=== PATIENT | female | born 2000 | race Caucasian/White ===

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

== ENCOUNTER 2024-12-28 18:39 | Inpatient (IN) ==
[2024-12-28 19:55] LABS: Appearance Urine Cloudy (Clear); Bacteria Urine Automated None Seen (None Seen); Bilirubin Urine Negative (Negative); Blood Urine 1+ (Negative); Cast Urine Automated 0-2 /lpf (0-2); Color Urine Yellow; Epithelial Cell Urine Auto 0-2 /hpf (0-2); Glucose Urine UA Negative (Negative); Ketones Urine 2+ (Negative); Leukocyte Esterase Urine 3+ (Negative); Nitrite Urine Negative (Negative); Protein Urine Trace (Negative); RBC Urine Automated 0-2 /hpf (0-2); Urobilinogen Urine Negative (Negative); WBC Urine Automated >50 /hpf (0-5); pH Urine 5.5 (4.5-7.5)
[2024-12-28 20:23] LABS: Basophils # (auto) 0.04 K/uL (0.00-0.20); Basophils % (auto) 0.5 %; Eosinophils # (auto) 0.01 K/uL (0.00-0.50); Eosinophils % (auto) 0.1 %; Hematocrit (blood only) 42.6 % (37.0-47.0); Hemoglobin 14.3 g/dl (12.0-16.0); Immature Granulocytes # (auto) 0.02 K/uL (0.01-0.20); Immature Granulocytes % (auto) 0.3 %; Lymphocytes # (auto) 2.26 K/uL (1.20-3.40); Lymphocytes % (auto) 29.2 %; Mean Corpuscular Hemoglobin 29.2 pg (25.0-34.0); Mean Corpuscular Hgb Conc 33.6 g/dL (32.0-36.0); Mean Corpuscular Volume 87.1 fL (80.0-100.0); Mean Platelet Volume 10.6 fL (9.4-12.4); Monocytes # (auto) 0.44 K/uL (0.11-0.59); Monocytes % (auto) 5.7 %; Neutrophils # (auto) 4.98 K/uL (1.40-6.50); Neutrophils % (auto) 64.2 %; Platelet Count 366 K/uL (130-400); RDW Coefficient of Variation 11.3 % (11.5-14.5); RDW Standard Deviation 36.3 fL (36.4-46.3); Red Blood Count 4.89 M/uL (4.20-5.40); White Blood Count 7.75 K/ul (4.8-10.8)
[2024-12-28 20:32] LABS: Acetaminophen < 3 ug/ml (10-30); Amphetamines+Metham, Urine Pos (Neg); Barbiturates, Urine Neg (Neg); Benzodiazepine, Urine Neg (Neg); Cocaine, Urine Neg (Neg); Fentanyl, Urine Neg (Neg); MDMA (Ecstacy), Urine Pos (Neg); Marijuana, Urine Pos (Neg); Methadone, Urine Neg (Neg); Opiate, Urine Neg (Neg); Phencyclidine, Urine Neg (Neg); Salicylate < 3.0 mg/dl (3.0-30)
[2024-12-28 20:33] LABS: Albumin Level 4.6 gm/dl (3.4-5.0); Anion Gap 10 (3-11); Bilirubin,Total 0.4 mg/dl (0.2-1.0); Calcium 9.7 mg/dl (8.6-10.3); Carbon Dioxide 29 mmol/L (21-32); Chloride 98 mmol/L (98-107); Potassium 3.3 mmol/L (3.5-5.1); Sodium 137 mmol/L (136-145)
[2024-12-28 20:39] LABS: Alanine Aminotransferase 28 U/L (7-52); Albumin Globulin Ratio 1.2 (0.9-2); Alkaline Phosphatase 102 U/L (34-104); Aspartate Aminotransferase 52 U/L (13-39); BUN Creatinine Ratio 9.9 (10-20); Blood Urea Nitrogen 8 mg/dl (6-23); Globulin 3.7 gm/dl (2.5-4.0); Glucose 85 mg/dl (70-99(Fasting)); Total Protein 8.3 gm/dl (6.0-8.3)
[2024-12-28 20:51] LABS: Thyroid Stimulating Hormone 0.817 uIu/ml (0.300-4.500)
[2024-12-28 21:14] LABS: Pregnancy Test, Urine Negative (Negative)
[2024-12-28] MEDS: NITROFURANTOIN MONOHYDRATE 100 MG CAP PO STA (22:02)
--- NOTE | 2024-12-28 23:39 | CT Scan Report ---
Exam(s): CT HEAD Without Contrast EXAM: CT Head Without Intravenous Contrast CLINICAL HISTORY: Reason for exam: ams. TECHNIQUE: Axial computed tomography images of the head/brain without intravenous contrast. CTDI is 39.03 mGy and DLP is 547.75 mGy-cm. Automated exposure control was utilized for the study. A dose lowering technique was utilized adhering to the principles of ALARA. COMPARISON: 09/11/2022 FINDINGS: Brain: No hemorrhage, extra-axial fluid collection, mass effect, or edema. Ventricles: Unremarkable. Bones/joints: Unremarkable. No fracture. Soft tissues: Unremarkable. Sinuses: No acute sinusitis. Mastoid air cells: Unremarkable as visualized. IMPRESSION: 1. No acute intracranial abnormality. Electronically signed by: Jc Concepcion MD 12/28/24 23:38 PM
--- NOTE | 2024-12-29 00:19 | Emergency Department Note ---
History of Present Illness General Chief complaint: Mental Health Evaluation Stated complaint: MHID Time Seen by Provider: 12/28/24 20:47 History of Present Illness Provider complaint: Mental health evaluation 25-year-old female presents the emergency department for mental health evaluation. Reportedly the police were called multiple times by the patient. Patient is unable to give history and is talking to people who are not in the room. She did make comments that the people who are in the room were telling her to stab herself on the heart with a knife. Home Medications Medication Instructions Recorded Confirmed Type levonorgestrel 17.5 mcg/24 hr (up 1 device intrauterine CONTINOUS 07/31/21 12/28/24 History to 5 yrs) 19.5mg intrauterine device (Kyleena) risperidone 4 mg tablet 4 mg PO HS 09/11/22 12/28/24 History trazodone 100 mg tablet 100 mg PO HS 09/11/22 12/28/24 History atomoxetine 10 mg capsule 10 mg PO DAILY ADD or ADHD 12/28/24 12/28/24 History atomoxetine 40 mg capsule 40 mg PO QAM ADD 12/28/24 12/28/24 History paliperidone 3 mg tablet,extended 3 mg PO QAM 12/28/24 12/28/24 History release 24 hr sertraline 25 mg tablet 25 mg PO DAILY MDD 12/28/24 12/28/24 History trazodone 50 mg tablet 50 mg PO HS 12/28/24 12/28/24 History Allergies Allergy/AdvReac Type Severity Reaction Status Date / Time No Known Allergies Allergy Mild Verified 03/19/22 18:26 Past Med/Surg History Problem List (Updated 12/29/24 @ 00:19 by Tahir Merlos MD) Auditory hallucinations (Acute) Drug abuse (Acute) UTI (urinary tract infection) (Acute) Presence of IUD kyleena, 06/2021 Schizoaffective disorder (Acute) History of drug abuse Depression (Chronic) ADD (attention deficit disorder) without hyperactivity (Acute) Gastroesophageal reflux disease (Acute) Medical History Encounter for IUD insertion Missed Seizure disorder As child (febrile seizures), out grew age 7 Surgical History H/O dilation and curettage D&E on 05/11/21, Dr. Lira. Family History Mother Learning disability Unknown History of cardiac disorder Hyperlipidemia Hypertension Grandmother Type 2 diabetes mellitus Grandfather Type 2 diabetes mellitus Grandmother (Maternal) Colorectal cancer Other Diverticulitis Heartburn Denies family history of Ovarian cancer Breast cancer Social History Smoking Status: Current some day smoker Tobacco Type: Cigarettes Cigarettes Per Day: ocasional thru out the day; Second Hand Exposure: No; Do You Dip or Chew Tobacco: No; Hx Alcohol Use: No Hx Substance Use: Yes Non-Prescribed Medications: Marijuana Preferred Language: Yakut Communication Ability: Effective Visual Impairment: No Limitations Hearing Ability: Normal Stapling Machine Operator Required: No Beliefs That Will Affect Care: None marital status: Single marital status details: paternity uncertain Current Living Situation: Family Current Living Situation Comment: lives with roommate current occupational status: unemployed Feels Safe at Home: No Is there a partner from a previous relationship who is making you feel unsafe now?: No caffeine: Yes Dental Care, Regularly: Yes Physical Activity Frequency: 5-6 Times per Week Seatbelt Use: always Sunscreen Use: No Physical Exam Vital Signs Vital Signs - 24 hr 12/28/24 18:39 12/28/24 22:42 Temperature 37 C Temperature Source Oral Pulse Rate 132 H Pulse Rate [Finger] 83 Respiratory Rate 20 17 Respiratory Effort / Characteristics Non-Labored Non-Labored Spontaneous Respiratory Depth Normal Normal Respiratory Pattern Regular Regular Blood Pressure 119/86 Blood Pressure [Left Arm] 115/75 Blood Pressure Mean 97 Blood Pressure Mean [Left Arm] 88 Pulse Oximetry 99 98 Oxygen Delivery Method Room Air Room Air Sepsis Recent Fever Within 48 Hours No Sepsis New/Unexplained Change in Mental Status N/A Sepsis Action Taken by Nursing No Action Required Physical Exam HENT: Exam performed. - Head: Normocephalic and atraumatic. EYES: Conjunctivae and EOM are normal. Right eye exhibits no discharge. Left eye exhibits no discharge. No scleral icterus. NECK: Normal range of motion. Neck supple. No JVD present. CV: Normal rate, regular rhythm, normal heart sounds and intact distal pulses. There is no peripheral edema. Palpable radial pulses bue. PULM/CHEST: Effort normal and breath sounds normal. No respiratory distress. No stridor. no wheezes. no rales. NEURO: Motor and sensation grossly intact. PSYCH: Patient speaking to people who are not there responding to external stimuli that are now present. Course Course 2046: The patient was evaluated in room A7. A complete history and physical exam was performed 2339: Vital signs stable. Imaging is unremarkable. Labs show possible UTI. COVID-positive. Patient was declined by the [facility] according to case management due to her having COVID. Patient is thought to need inpatient treatment for her auditory hallucinations and suicidal ideation. Patient will be admitted to the medicine service to be evaluated by psychiatry in the morning. Administered Medications Discontinued Medications Nitrofurantoin Macrocrystals (Nitrofurantoin Monohydrate 100 Mg Cap) 100 mg PO NOW STA Stop: 12/28/24 21:42 Last Admin: 12/28/24 22:02 Dose: 100 mg Documented By: ROBERTA Medical Decision Making Laboratory Data Attestation: I reviewed the patient's lab results. 12/28/24 19:22 12/28/24 19:22 Lab Results 12/28/24 12/28/24 Range/Units 19:22 Unknown WBC 7.75 (4.8-10.8) K/ul RBC 4.89 (4.20-5.40) M/uL Hgb 14.3 (12.0-16.0) g/dl Hct 42.6 (37.0-47.0) % MCV 87.1 (80.0-100.0) fL MCH 29.2 (25.0-34.0) pg MCHC 33.6 (32.0-36.0) g/dL RDW Std Deviation 36.3 L (36.4-46.3) fL RDW Coeff of Dominic 11.3 L (11.5-14.5) % Plt Count 366 (130-400) K/uL MPV 10.6 (9.4-12.4) fL Immature Gran % (Auto) 0.3 % Neut % (Auto) 64.2 % Lymph % (Auto) 29.2 % Webb % (Auto) 5.7 % Eos % (Auto) 0.1 % Baso % (Auto) 0.5 % Neut # (Auto) 4.98 (1.40-6.50) K/uL Lymph # (Auto) 2.26 (1.20-3.40) K/uL Webb # (Auto) 0.44 (0.11-0.59) K/uL Eos # (Auto) 0.01 (0.00-0.50) K/uL Baso # (Auto) 0.04 (0.00-0.20) K/uL Immature Gran # (Auto) 0.02 (0.01-0.20) K/uL Sodium 137 (136-145) mmol/L Potassium 3.3 L (3.5-5.1) mmol/L Chloride 98 (98-107) mmol/L Carbon Dioxide 29 (21-32) mmol/L Anion Gap 10 (3-11) BUN 8 (6-23) mg/dl Creatinine 0.81 (0.6-1.2) mg/dl Est Cr Clr Drug Dosing Not Reportable eGFR 105.19 BUN/Creatinine Ratio 9.9 L (10-20) Glucose 85 (70-99(Fasting)) mg/dl Calcium 9.7 (8.6-10.3) mg/dl Total Bilirubin 0.4 (0.2-1.0) mg/dl AST 52 H (13-39) U/L ALT 28 (7-52) U/L Alkaline Phosphatase 102 (34-104) U/L Total Protein 8.3 (6.0-8.3) gm/dl Albumin 4.6 (3.4-5.0) gm/dl Globulin 3.7 (2.5-4.0) gm/dl Albumin/Globulin Ratio 1.2 (0.9-2) TSH 0.817 (0.300-4.500) uIu/ml Urine Color Yellow Urine Appearance Cloudy A (Clear) Urine pH 5.5 (4.5-7.5) Ur Specific [place] 1.010 (1.000-1.030) Urine Protein Trace H (Negative) Urine Glucose (UA) Negative (Negative) Urine Ketones 2+ H (Negative) Urine Blood 1+ H (Negative) Urine Nitrite Negative (Negative) Urine Bilirubin Negative (Negative) Urine Urobilinogen Negative (Negative) Ur Leukocyte Esterase 3+ H (Negative) Urine WBC (Auto) >50 H (0-5) /hpf Urine RBC (Auto) 0-2 (0-2) /hpf U Hyaline Cast (Auto) 0-2 (0-2) /lpf U Epithel Cells (Auto) 0-2 (0-2) /hpf Urine Bacteria (Auto) None Seen (None Seen) Urine Test Negative (Negative) Salicylates < 3.0 L (3.0-30) mg/dl Urine Opiates Screen Neg (Neg) Ur Methadone, Qual Neg (Neg) Urine Fentanyl Screen Neg (Neg) Acetaminophen < 3 L (10-30) ug/ml Urine Barbiturates Neg (Neg) Ur Phencyclidine (PCP) Neg (Neg) U Amphetamin/Meth Scrn Pos H (Neg) MDMA (Ecstasy) Screen Pos H (Neg) U Benzodiazepines Scrn Neg (Neg) Ur Cocaine Metabolite Neg (Neg) U Marijuana (THC) Screen Pos H (Neg) Ethyl Alcohol mg/dL < 10.0 (<10.0) mg/dl SARS-CoV-2, RNA, NAAT POSITIVE A (NEGATIVE) Imaging Data Attestation: I personally reviewed and interpreted this imaging study as follows: My Impression: CT head: No ICH Radiologist's Impression: Head CT 12/28/24 21:46 Exam(s): CT HEAD Without Contrast EXAM: CT Head Without Intravenous Contrast CLINICAL HISTORY: Reason for exam: ams. TECHNIQUE: Axial computed tomography images of the head/brain without intravenous contrast. CTDI is 39.03 mGy and DLP is 547.75 mGy-cm. Automated exposure control was utilized for the study. A dose lowering technique was utilized adhering to the principles of ALARA. COMPARISON: 09/11/2022 FINDINGS: Brain: No hemorrhage, extra-axial fluid collection, mass effect, or edema. Ventricles: Unremarkable. Bones/joints: Unremarkable. No fracture. Soft tissues: Unremarkable. Sinuses: No acute sinusitis. Mastoid air cells: Unremarkable as visualized. IMPRESSION: 1. No acute intracranial abnormality. Electronically signed by: Jc Concepcion MD 12/28/24 23:38 PM [facility] Narrative Vital signs stable. Imaging is unremarkable. Labs show possible UTI. COVID- positive. Patient was declined by the [facility] according to case management due to her having COVID. Patient is thought to need inpatient treatment for her auditory hallucinations and suicidal ideation. Patient will be admitted to the medicine service to be evaluated by psychiatry in the morning. Impression & Plan UTI (urinary tract infection), Drug abuse, Auditory hallucinations Discharge Plan Visit Data Chief Complaint: Mental Health Evaluation Stated Complaint: MHID ED Provider: Tahir Merlos Discharge Problem: UTI (urinary tract infection), Drug abuse, Auditory hallucinations Patient Disposition: Admitted As Inpatient Forms Stand Alone Forms: My [facility], Suicide Prevention Resources Prescriptions Prescriptions: No Action Kyleena 17.5 mcg/24 hrs (5 yrs) 19.5 mg intrauterine device 1 device intrauterine CONTINOUS risperidone 4 mg tablet 4 mg PO HS trazodone 100 mg tablet 100 mg PO HS atomoxetine 10 mg capsule 10 mg PO DAILY atomoxetine 40 mg capsule 40 mg PO QAM sertraline 25 mg tablet 25 mg PO DAILY trazodone 50 mg tablet 50 mg PO HS paliperidone 3 mg tablet extended release 24 hr 3 mg PO QAM Referrals Referrals: Maritza Kilgore [Primary Care Provider] -
--- NOTE | 2024-12-29 01:04 | History & Physical Report ---
Date of Service December 29, 2024 Assessment & Plan (1) Auditory hallucinations: (2) Schizoaffective disorder: (3) Depression: (4) ADD (attention deficit disorder) without hyperactivity: (5) Lab test positive for detection of COVID-19 virus: Plan Pt is a 24 yo female with a past med hx of schizoaffective disorder, ADHD, and depression who presents to the hospital on 12/29 for auditory and visual hallucinations, has been off her medications per psych case management note for 3-4 days. #Hallucinations, auditory and visual #Hx Schizoaffective disorder - reportedly off her medications the last few days, takes risperidone and paliperidone - psych consulted; pending - 1:1 here in the hospital #Abnormal UDS - UDS + for marijuana, methamphetamine, and MDMA - pt notably does have ADHD but takes atomoxetine at home per med list and question if this may be false positive #COVID-19 + - pt appears asymptomatic from this - will monitor for symptom development but could be positive from recent resolved infection, may inquire when pt more willing to answer questions #Bacteruria - noted on admission UA + bacteria and LE, ED given 1 dose macrobid - will continue macrobid as she is unable to effectively communicate symptoms at this time #Depression - takes sertraline at home - takes trazodone at home for sleep All home medications held on admission pending psych eval. EKG scheduled for am. VTE ppx: Junior score 1 ( control) so low risk for VTE, encourage ambulation Diet: Safe tray History of Present Illness Chief Complaint: Auditory and visual hallucinations Primary Care Provider: Maritza Kilgore Pt is a 24 yo female with a past med hx of schizoaffective disorder, ADHD, and depression who presents to the hospital on 12/29 for auditory and visual hallucinations, has been off her medications per psych case management note for 3-4 days. Pt seen at bedside. She continuously responds to perceived visual and auditory stimuli. Even with repeated questioning, she continues to essentially only interact with other perceived stimuli. When asked if I could listen to her lungs, she states "why do you have to ask me all these questions right now?" and then answers no further questions. Per psych case management note, pt came from home where she lives with per parents. When asked if she has pain, she states yes but then is unable to describe or indicate to me where. Allergies Allergy/AdvReac Type Severity Reaction Status Date / Time No Known Allergies Allergy Mild Verified 03/19/22 18:26 Home Medications Medication Instructions Recorded Confirmed Type levonorgestrel 17.5 mcg/24 hr (up 1 device intrauterine CONTINOUS 07/31/21 12/28/24 History to 5 yrs) 19.5mg intrauterine device (Kyleena) risperidone 4 mg tablet 4 mg PO HS 09/11/22 12/28/24 History trazodone 100 mg tablet 100 mg PO HS 09/11/22 12/28/24 History atomoxetine 10 mg capsule 10 mg PO DAILY ADD or ADHD 12/28/24 12/28/24 History atomoxetine 40 mg capsule 40 mg PO QAM ADD 12/28/24 12/28/24 History paliperidone 3 mg tablet,extended 3 mg PO QAM 12/28/24 12/28/24 History release 24 hr sertraline 25 mg tablet 25 mg PO DAILY MDD 12/28/24 12/28/24 History trazodone 50 mg tablet 50 mg PO HS 12/28/24 12/28/24 History Past Med/Surg History Problem List (Updated 12/29/24 @ 02:15 by Mynor Johns) Family conflict Lab test positive for detection of COVID-19 virus Auditory hallucinations (Acute) Drug abuse (Acute) UTI (urinary tract infection) (Acute) Presence of IUD kyleena, 06/2021 Schizoaffective disorder (Acute) History of drug abuse Depression (Chronic) ADD (attention deficit disorder) without hyperactivity (Acute) Gastroesophageal reflux disease (Acute) Medical History Encounter for IUD insertion Missed Seizure disorder As child (febrile seizures), out grew age 7 Surgical History H/O dilation and curettage D&E on 05/11/21, Dr. Lira. Family History Mother Learning disability Unknown History of cardiac disorder Hyperlipidemia Hypertension Grandmother Type 2 diabetes mellitus Grandfather Type 2 diabetes mellitus Grandmother (Maternal) Colorectal cancer Other Diverticulitis Heartburn Denies family history of Ovarian cancer Breast cancer Social History Smoking Status: Current every day smoker Tobacco Type: E-cigarettes / Vaping Cigarettes Per Day: ocasional thru out the day; Second Hand Exposure: No; Do You Dip or Chew Tobacco: No; Hx Alcohol Use: Yes Hx Substance Use: Yes Non-Prescribed Medications: Marijuana Preferred Language: Arabic Communication Ability: Effective Visual Impairment: No Limitations Hearing Ability: Normal Poultry Dresser Required: No Beliefs That Will Affect Care: None marital status: Single marital status details: paternity uncertain Current Living Situation: Parent Current Living Situation Comment: lives with roommate current occupational status: unemployed Feels Safe at Home: Yes caffeine: Yes Dental Care, Regularly: Yes Physical Activity Frequency: 5-6 Times per Week Seatbelt Use: always Sunscreen Use: No Review of Systems Review of Systems: Per HPI. Physical Exam Physical Exam: General: Alert but continuously responding to perceived visual and auditory stimuli, unwilling to answer any orientation questions aside from self, and she is oriented to self HEENT: Normocephalic, moist oral mucosa, Resp: Lungs clear to auscultation b/l, no wheezes or rhonchi, Skin: Warm, pink, dry,no rashes on visible skin Results & Data Results & Data Vital Signs (Past 12 Hours) Vital Signs Temp Pulse Pulse Resp BP BP Pulse Ox 12/29/24 00:39 98 H 20 114/70 97 12/28/24 22:42 83 17 115/75 98 12/28/24 18:39 37 C 132 H 20 119/86 99 O2 Del Method 12/29/24 00:39 Room Air 12/28/24 22:42 Room Air 12/28/24 18:39 Room Air Supervising Physician Co-Signing Physician Notes Attending addendum: I have physically seen this patient, have supervised the medical residents activities, and agree with the H&P unless as otherwise noted. Assessment and Plan: The patient is a 24-year-old female with a past medical history including schizoaffective disorder, ADHD, and depression, who presents to the emergency department for auditory and visual hallucinations, having been off her medications for about 3 to 4 days. Auditory and visual hallucinations/history of schizoaffective disorder- Patient has been off her psychiatry medications including risperidone and paliperidone for the past few days. Consulting psychiatry Placed on one-to-one observation Hold current medications Urine drug screen- Positive for marijuana, amphetamine/methamphetamine, and MDMA. In part likely secondary to false positive results to the current medications she is on Follow on telemetry for possible arrhythmia COVID-19 infection- Asymptomatic Performed as screening for possible admission to mental health Bacteriuria- Follow urine culture and sensitivity She had been given Macrobid previously, which can be followed for now, but would be concerned about potential side effects Resident Activity Tracking Resident Involvement: Resident Care Provided Care Provided: Adult [facility] (2) Schizoaffective disorder Schizoaffective disorder type: other Qualified Code(s): F25.8 - Other schizoaffective disorders
[2024-12-29] MEDS: MELATONIN 3 MG TAB PO PRN (01:38)
[2024-12-29] MEDS: LORazepam 2 MG/1 ML VIAL IV STA (04:51)
[2024-12-29] MEDS: POTASSIUM CHLORIDE CRTAB 20 MEQ TABCR PO STA (04:57)
[2024-12-29] MEDS: LORazepam 0.5 MG TAB PO STA (04:57)
[2024-12-29 07:23] LABS: Basophils # (auto) 0.04 K/uL (0.00-0.20); Basophils % (auto) 0.7 %; Eosinophils # (auto) 0.03 K/uL (0.00-0.50); Eosinophils % (auto) 0.5 %; Hematocrit (blood only) 39.8 % (37.0-47.0); Hemoglobin 13.6 g/dl (12.0-16.0); Immature Granulocytes # (auto) 0.01 K/uL (0.01-0.20); Immature Granulocytes % (auto) 0.2 %; Lymphocytes # (auto) 1.37 K/uL (1.20-3.40); Lymphocytes % (auto) 22.4 %; Mean Corpuscular Hemoglobin 29.6 pg (25.0-34.0); Mean Corpuscular Hgb Conc 34.2 g/dL (32.0-36.0); Mean Corpuscular Volume 86.5 fL (80.0-100.0); Mean Platelet Volume 10.2 fL (9.4-12.4); Monocytes # (auto) 0.43 K/uL (0.11-0.59); Neutrophils # (auto) 4.23 K/uL (1.40-6.50); Neutrophils % (auto) 69.2 %; Platelet Count 342 K/uL (130-400); RDW Coefficient of Variation 11.3 % (11.5-14.5); RDW Standard Deviation 36.2 fL (36.4-46.3); White Blood Count 6.11 K/ul (4.8-10.8)
[2024-12-29 07:36] LABS: Alanine Aminotransferase 25 U/L (7-52); Albumin Globulin Ratio 1.3 (0.9-2); Albumin Level 4.3 gm/dl (3.4-5.0); Alkaline Phosphatase 93 U/L (34-104); Anion Gap 4 (3-11); Aspartate Aminotransferase 38 U/L (13-39); BUN Creatinine Ratio 13.4 (10-20); Bilirubin,Total 0.3 mg/dl (0.2-1.0); Blood Urea Nitrogen 9 mg/dl (6-23); Calcium 9.5 mg/dl (8.6-10.3); Carbon Dioxide 32 mmol/L (21-32); Chloride 102 mmol/L (98-107); Globulin 3.4 gm/dl (2.5-4.0); Glucose 94 mg/dl (70-99(Fasting)); Potassium 4.2 mmol/L (3.5-5.1); Sodium 138 mmol/L (136-145); Total Protein 7.7 gm/dl (6.0-8.3)
[2024-12-29] MEDS ORDERED: ONDANSETRON INJ 2 MG/ML 2 ML VIAL IV PRN (08:43)
[2024-12-29] MEDS: FAMOTIDINE 20MG IV PUSH 20 MG/5 ML SYR IV STA (09:59)
--- NOTE | 2024-12-29 13:45 | Psychiatric Consultation ---
Date of Consultation December 29, 2024 Impression / Recommendations Impression 24 y/o F h/o Schizoaffective disorder, depressed type, multiple past psychiatric hospitalizations, COVID+ presents with acute psychosis in the context of family conflict at home and possible medication non-adherence. Police were called and patient threatened to stab herself. Psychiatry consulted for evaluation and recommendations. Patient presents acutely psychotic, responding to internal stimuli and poor e ngagement in the clinical interview. History reveals h/o recurrent psychiatric hospitalizations, medication non-adherence, depression, and drug abuse. Possible recent methamphetamine and marijuana use precipitated psychosis. Active UTI. Labs reviewed: CMP, CBC, TSH, BHCG unremarkable; UA: 4+LE, >50WBC; UDS+Amphetamine, THC, MDMA. Admitted to medical floor due to covid positive status and will be followed by psychiatry service daily as PSOC. Overall, I spent a total of 80 minutes with this case including review of chart records, nursing report, review of lab work, direct evaluation of the patient at bedside, counseling the patient, discussion of the patient with the hospitalist provider, discussion with the psychiatric liaison during clinical rounds, and documentation in the electronic health record. (1) Auditory hallucinations: (2) Schizoaffective disorder: Schizoaffective disorder type: other Qualified Code(s): F25.8 - Other schizoaffective disorders (3) Methamphetamine abuse: (4) Cannabis abuse: (5) UTI (urinary tract infection): (6) Family conflict: (7) Nonadherence to medication: (8) Lab test positive for detection of COVID-19 virus: Plan Risperidone 1mg BID Trazodone 50mg HS Lorazepam 0.5mg HS Hold home sertraline, atomoxetine Continue 1:1 sitter Currently on 302 petition Will request records from outpatient psychiatry Will continue to follow patient as [facility] Psych History Identifying Data 24 y/o F h/o Schizoaffective disorder, depressed type, multiple past psychiatric hospitalizations, COVID+ presents with acute psychosis in the context of family conflict at home and possible medication non-adherence. Police were called and patient threatened to stab herself. Psychiatry consulted for evaluation and recommendations. Chief Complaint "Tired" History of Present Illness On interview patient appears paranoid and presents hesitancy to talk to us. Answers and short replies and covers herself under the sheets. She confirms having an argument with her father. Says that she feels safe. Unwilling to tell us about recent drug use. Informed about her UTI status and educated. Throughout the interview she is seen responding to internal stimuli and talking to someone not present in the room. Says that she was taking medications however did not take them yesterday. Unwilling to answer further questions and closes her eyes. Chart review: Past ER visit on 06/14/2024 where she was psychotic and responding to internal stimuli. Was hospitalized at [facility]. Outpatient psychiatric follow-up at [place]. Lives with her father. Currently taking sertraline 25 mg, trazodone 50 mg, paliperidone 3 mg, Strattera. Previously was on paliperidone 9 mg, Haldol 2 mg 3 times daily. History of medication nonadherence. Appears she had recent hospitalization at [facility]. Attempted to gather collateral from father however went to voicemail. Allergies Allergy/AdvReac Type Severity Reaction Status Date / Time No Known Allergies Allergy Mild Verified 03/19/22 18:26 Home Medications Medication Instructions Recorded Confirmed Type levonorgestrel 17.5 mcg/24 hr (up 1 device intrauterine CONTINOUS 07/31/21 12/28/24 History to 5 yrs) 19.5mg intrauterine device (Kyleena) risperidone 4 mg tablet 4 mg PO HS 09/11/22 12/28/24 History trazodone 100 mg tablet 100 mg PO HS 09/11/22 12/28/24 History atomoxetine 10 mg capsule 10 mg PO DAILY ADD or ADHD 12/28/24 12/28/24 History atomoxetine 40 mg capsule 40 mg PO QAM ADD 12/28/24 12/28/24 History paliperidone 3 mg tablet,extended 3 mg PO QAM 12/28/24 12/28/24 History release 24 hr sertraline 25 mg tablet 25 mg PO DAILY MDD 12/28/24 12/28/24 History trazodone 50 mg tablet 50 mg PO HS 12/28/24 12/28/24 History Patient History Medical History Encounter for IUD insertion Missed Seizure disorder As child (febrile seizures), out grew age 7 Surgical History H/O dilation and curettage D&E on 05/11/21, Dr. Lira. Family History Mother Learning disability Unknown History of cardiac disorder Hyperlipidemia Hypertension Grandmother Type 2 diabetes mellitus Grandfather Type 2 diabetes mellitus Grandmother (Maternal) Colorectal cancer Other Diverticulitis Heartburn Denies family history of Ovarian cancer Breast cancer Social History Smoking Status: Current every day smoker Tobacco Type: E-cigarettes / Vaping Cigarettes Per Day: ocasional thru out the day; Second Hand Exposure: No; Do You Dip or Chew Tobacco: No; Hx Alcohol Use: Yes Hx Substance Use: Yes Non-Prescribed Medications: Marijuana Preferred Language: Sami Communication Ability: Effective Visual Impairment: No Limitations Hearing Ability: Normal Binder Operator Required: No Beliefs That Will Affect Care: None marital status: Single marital status details: paternity uncertain Current Living Situation: Parent Current Living Situation Comment: lives with roommate current occupational status: unemployed Feels Safe at Home: Yes caffeine: Yes Dental Care, Regularly: Yes Physical Activity Frequency: 5-6 Times per Week Seatbelt Use: always Sunscreen Use: No Physical Exam Mental Examination: Appearance: Disheveled Eye Contact: Sporadic Contact Motor Behavior: Unremarkable Speech: Soft and Poverty of Speech Mood: Anxious and Irritable Affect: Constricted, Irritable and Suspicious Thought Process: Disorganized Thought Content: Racing Hallucinations: Auditory Insight: Poor Judgement: Poor Vital Signs (Past 24 Hours): Last Vital Signs Temp 37 C 12/28/24 18:39 Pulse 90 12/29/24 10:53 Resp 18 12/29/24 10:53 BP 120/53 L 12/29/24 10:53 Pulse Ox 95 12/29/24 10:53 O2 Del Method Room Air 12/29/24 10:53 Results & Data (PSY) Medications Administered Melatonin (Melatonin 3 Mg Tab) 6 mg PO HS PRN PRN Reason: Sleep Stop: 01/28/25 01:30 Last Admin: 12/29/24 01:38 Dose: 6 mg Documented By: OLVIN Coding [place] [address] IN/OBS CONSULT LVL 5,80M Patient Type Established History Detailed Exam Detailed Medical Decision Making High Complexity Diagnoses Auditory hallucinations R44.0 Schizoaffective disorder F25.8 Schizoaffective disorder type: other Methamphetamine abuse F15.10 Cannabis abuse F12.10 UTI (urinary tract infection) N39.0 Family conflict Z63.8 Nonadherence to medication Z91.14 Lab test positive for detection of COVID-19 virus U07.1
[2024-12-29] MEDS: NITROFURANTOIN MONOHYDRATE 100 MG CAP PO SCH (19:02)
[2024-12-29] MEDS: risperiDONE 1 MG TABLET PO SCH (19:03)
--- NOTE | 2024-12-29 19:51 | Communication Note ---
Date of Service: December 29, 2024 Care was d/w psych via [facility] communication. They have recommended ongoing 1:1 observation, resumption of risperdal 1mg BID, ativan 0.5mg HS, trazodone 50mg HS. Prior to seeing Nancie her mother had stopped by and I spoke with her briefly outside the room. Nancie's mother stated that she was in a dual dx rehab program for 45 days in late 2023 in [place]. She has had troubles with drug abuse for 5+ years. Nancie has struggled with her mental health and has been in/out of psych facilities frequently in the last few years. During my bedside visit Nancie reports not remembering the psychiatrist stopping in. She did ask for her meal-tray - she is now hungry. Had had dry heaves earlier in the day - now resolved. Denies any abd pain. We discussed her COVID+ test. She had URI symptoms in the last couple of weeks but could not specifically remember when the symptoms began. By nursing report she declined her AM risperdal earlier today. With respect to possible UTI she denies any UTI symptoms despite the u/a results. Will await urine cx. Kayden Collazo MD
--- NOTE | 2024-12-29 20:31 | Billing Data ---
Date of Service December 29, 2024 Coding Level of Care Code 01580 INT INP/OBS CARE
[2024-12-29] MEDS: LORazepam 0.5 MG TAB PO SCH (22:22)
[2024-12-29] MEDS: traZODone HCL 50 MG TAB PO SCH (22:23)
[2024-12-30] MEDS: SULFAMETHOXAZOLE/TRIMETHOPRIM DS 800/160MG TAB PO SCH (12:26)
--- NOTE | 2024-12-30 15:24 | Psychiatric Progress Note ---
Date of Service December 30, 2024 Impression / Recommendations Impression 24 y/o F h/o Schizoaffective disorder, depressed type, multiple past psychiatric hospitalizations, COVID+ presents with acute psychosis in the context of family conflict at home and possible medication non-adherence. Police were called and patient threatened to stab herself. Psychiatry consulted for evaluation and recommendations. A: Patient presenting an improvement in thought process and psychosis. Auditory hallucinations continue to persist. Patient is a poor historian and provides conflicting details. Per collateral psychotic symptoms presented prior to methamphetamine use. We will continue to clarify diagnosis. Patient would benefit from long-acting injection. Patient demonstrates poor insight given recurrent medication nonadherence and drug use. Likely recurrent methamphetamine use is precipitating psychosis and creating conditions for medication nonadherence and poor follow-up. Overall, I spent a total of 40 minutes with this case including review of chart records, nursing report, review of lab work, direct evaluation of the patient at bedside, counseling the patient, discussion of the patient with the hospitalist provider, discussion with the psychiatric liaison during clinical rounds, and documentation in the electronic health record. (1) Auditory hallucinations: (2) Schizoaffective disorder: (3) Methamphetamine abuse: (4) Cannabis abuse: (5) UTI (urinary tract infection): (6) Family conflict: (7) Nonadherence to medication: (8) Lab test positive for detection of COVID-19 virus: Plan 12/30/24: Continue medications and treatment plan 12/29/24: Risperidone 1mg BID Trazodone 50mg HS Lorazepam 0.5mg HS Hold home sertraline, atomoxetine Continue 1:1 sitter Currently on 302 petition Will request records from outpatient psychiatry Will continue to follow patient as [facility] Risk Factors Assessment Do You Have Access To A Gun?: No Interval History Identifying Information 24 y/o F h/o Schizoaffective disorder, depressed type, multiple past psychiatric hospitalizations, COVID+ presents with acute psychosis in the context of family conflict at home and possible medication non-adherence. Police were called and patient threatened to stab herself. Psychiatry consulted for evaluation and recommendations. Chief Complaint Psychosis Subjective Subjective Patient was seen & assessed and interval progress reviewed with treatment team nursing and social work Overnight refused a.m. medications however took nightly medications. On interview she reports feeling rested and voices have reduced in intensity. Reports the voices remain even when sober. Voices instruct her to kill herself. Denies that voices instruct her to kill other people. Finds the antipsychotic medication helpful. Reports past long-acting injections and is agreeable. 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 Reports future plans to be more independent including getting a job in a car. Says her main complaints about family is that mother is not present. Confirms follow-up at [place]. Reports having voices since 21 years of age and that meth use started afterwards. Collateral from mother: Mother appears supportive. Reports mother does not live with patient due to patient having poor boundary control. Patient has been using methamphetamine regularly. Diagnosed with schizophrenia in 2019. Mother was concerned she was hearing voices prior to meth use as she was demonstrating odd behaviors and appeared preoccupied by the voices. In the middle of September patient was released from a rehab facility in [place] and then relapsed on drugs. Patient has poor follow-up. Physical Exam Mental Examination Appearance: Disheveled Eye Contact: Sporadic Contact Motor Behavior: Unremarkable Speech: Soft and Poverty of Speech Mood: Anxious and Irritable Affect: Constricted, Irritable and Suspicious Thought Process: Disorganized Thought Content: Racing Hallucinations: Auditory Insight: Poor Judgement: Poor Vital Signs (Past 24 Hours) Last Vital Signs Temp 36.7 C 12/30/24 08:08 Pulse 101 H 12/30/24 08:08 Resp 16 12/30/24 08:08 BP 106/68 12/30/24 08:08 Pulse Ox 97 12/30/24 08:08 O2 Del Method Room Air 12/30/24 08:08 Results & Data ([facility]) Current Inpatient Medications Current Inpatient Medications: Current Inpatient Medications Lorazepam (Lorazepam 0.5 Mg Tab) 0.5 mg PO HS RAYMUNDO Stop: 01/28/25 20:59 Last Admin: 12/29/24 22:22 Dose: 0.5 mg Melatonin (Melatonin 3 Mg Tab) 6 mg PO HS PRN PRN Reason: Sleep Stop: 01/28/25 01:30 Last Admin: 12/29/24 22:22 Dose: 6 mg Ondansetron HCl (Ondansetron Inj 2 Mg/Ml 2 Ml Vial) 4 mg IV Q6H PRN PRN Reason: Nausea And Vomiting Stop: 01/28/25 08:42 Ondansetron HCl (Ondansetron 4 Mg Od Tab) 4 mg PO Q6H PRN PRN Reason: Nausea Stop: 01/28/25 09:12 Risperidone (Risperidone 1 Mg Tablet) 1 mg PO BID RAYMUNDO Stop: 01/28/25 10:14 Last Admin: 12/30/24 09:04 Dose: 1 mg Trazodone HCl (Trazodone Hcl 50 Mg Tab) 50 mg PO HS RAYMUNDO Stop: 01/28/25 20:59 Last Admin: 12/29/24 22:23 Dose: 50 mg Trimethoprim/Sulfamethoxazole (Sulfamethoxazole/Trimethoprim Ds 800/160mg Tab) 1 tab PO Q12 RAYMUNDO Stop: 01/02/25 08:59 Last Admin: 12/30/24 12:26 Dose: 1 tab Mental Health & Subst Abuse Tx Psychiatrist Name of Psychiatrist: Washington Gudino Psychiatrist's Date Of Appointment With Psychiatric Provider: 01/10/25 Time of Appointment with Psychiatrist: 10:20 AM Psychiatric Appointment Comment: Kristy Aviles Psychiatrist Release of Information: Obtained Post Discharge Appointments Primary Care Physician Name Of Family Doctor/PCP: Maritza Kilgore [facility] Primary Care Provider Appointment Comment: Last seen in 2022 Primary Care Release of Information: Obtained and Reviewed (2) Schizoaffective disorder Schizoaffective disorder type: other Qualified Code(s): F25.8 - Other schizoaffective disorders
--- NOTE | 2024-12-30 19:20 | Hospitalist Progress Note ---
Date of Service December 30, 2024 Assessment & Plan (1) Auditory hallucinations: (2) Schizoaffective disorder: (3) Depression: (4) ADD (attention deficit disorder) without hyperactivity: (5) Lab test positive for detection of COVID-19 virus: (6) UTI (urinary tract infection): (7) Drug abuse: (8) Tobacco use: Plan Pt is a 24 yo female with a past med hx of schizoaffective disorder, ADD, polysubstance abuse, and depression who presented to the hospital on 12/29 for auditory and visual hallucinations. Had been off her mental health medications per psych case management for 3-4 days. Tested + for COVID-19 upon admission. #Hallucinations, auditory and visual * substance abuse (methamphetamines) likely the major culprit * cannot fully rule out her schizoaffective disorder playing a role * hallucinations HAVE improved with resumption of risperdal and as meth effects have waned * appreciate psych consult & ongoing recs * cont 1:1 observation; sitter remains in room #Hx Schizoaffective disorder * reportedly off her medications the last few days prior to admission; typically takes risperidone and paliperidone * her mother reported noncompliance off/on for several years * during times of substance abuse she is often noncompliant with therapy * follows with [facility] locally for mental health * appreciate psych consultation * cont risperdal 1mg BID, ativan HS, trazodone HS * psychotic sx's improved; sleep improved * cont 1:1 observation #Polysubstance abuse * Urine drug screen + for marijuana, methamphetamine, and MDMA * pt notably does have ADD and takes atomoxetine at home per med list; did this cause MDMA false +? #COVID-19 + * URI symptoms in the last few weeks * these symptoms are largely resolved * no indication for steroids or Remdesivir * cont airborne isolation per infection control guidelines #Uncomplicated UTI * 2nd klebsiella * intermediate resistance to macrobid * stop macrobid; change to bactrim DS 1 tab BID x 3 days #Tobacco dependence * nicorette gum prn care d/w psychiatry via [facility] correspondence Admission and Anticipated Discharge Date Admission Date: December 29, 2024 Subjective patient resting in bed upon my arrival she was sleepy took her a minute or two to wake up once awake she did not offer much in the way of history she did state that the auditory and visual hallucinations were much better denied cough/URI symptoms no dry heaves or vomiting eating/drinking w/o difficulty Review of Systems Review of Systems: gen - no fevers or chills cv - no chest pain pulm - no dyspnea GI - no abd pain Physical Exam Physical Exam: gen - lying in bed comfortably, NAD, sleepy mouth - MMM heart - RRR, s1 s2, no murmur lungs - CTA b/l abd - soft NT ND BS+ ext - no edema, pulses 2+ b/l psych - awake, alert, not responding to internal stimuli Results & Data Results & Data Vital Signs (Past 12 Hours) Vital Signs Temp Pulse Resp BP Pulse Ox O2 Del Method 12/30/24 15:00 36.6 C 100 H 16 101/65 95 Room Air 12/30/24 08:08 36.7 C 101 H 16 106/68 97 Room Air Laboratory Results Microbiology 12/28/24 19:22 Urine,Clean Catch Urine Culture - Final Klebsiella aerogenes PG Care Time/CCT Total # of Minutes Spent Total Time Spent with Patient: Total time spent is greater than 50% in coordination of care (as documented) at patient's floor/unit and/or counseling patient: Coding Level of Care Code 78712 SUB INP/OBS CARE 2/35MIN Diagnoses Auditory hallucinations R44.0 Schizoaffective disorder F25.8 Schizoaffective disorder type: other Depression F32.9 ADD (attention deficit disorder) without hyperactivity F98.8 Lab test positive for detection of COVID-19 virus U07.1 UTI (urinary tract infection) N39.0 Drug abuse F19.10 Tobacco use Z72.0 (2) Schizoaffective disorder Schizoaffective disorder type: other Qualified Code(s): F25.8 - Other schizoaffective disorders
[2024-12-30] MEDS: NICOTINE POLACRILEX 2 MG GUM MT PRN (20:15)
--- NOTE | 2024-12-31 14:28 | Electrocardiogram Report ---
Test Reason : Blood Pressure : */* mmHG Vent. Rate : 85 BPM Atrial Rate : 85 BPM P-R Int : 130 ms QRS Dur : 84 ms QT Int : 374 ms P-R-T Axes : 108 103 115 degrees QTcB Int : 445 ms Suspect arm lead reversal, interpretation assumes no reversal Normal sinus rhythm Rightward axis Borderline ECG When compared with ECG of 11-Sep-2022 01:27, No significant change was found Confirmed by Denver Ontiveros ([id number]) on 12/31/2024 2:28:10 PM Referred By: REFERRED SELF Confirmed By: Denver Ontiveros
--- NOTE | 2024-12-31 15:30 | Psychiatric Progress Note ---
Date of Service December 31, 2024 Impression / Recommendations Impression 24 y/o F h/o Schizoaffective disorder, depressed type, multiple past psychiatric hospitalizations, COVID+ presents with acute psychosis in the context of family conflict at home and possible medication non-adherence. Police were called and patient threatened to stab herself. Psychiatry consulted for evaluation and recommendations. A: Patient presents poor insight/judgement into her substance dependence and psyc hiatric condition. Patient is a poor historian and provides conflicting details. Concern for on-going auditory hallucinations. Refused long acting injection antipsychotic today. Presenting a clearer thought process from admission. Sleeping well. Plan to optimize Risperidone dose. Unlikely to engage in case management intake at this time. Overall, I spent a total of 45 minutes with this case including review of chart records, nursing report, review of lab work, direct evaluation of the patient at bedside, counseling the patient, discussion of the patient with the hospitalist provider, discussion with the psychiatric liaison during clinical rounds, and documentation in the electronic health record. (1) Auditory hallucinations: (2) Schizoaffective disorder: (3) Methamphetamine abuse: (4) Cannabis abuse: (5) UTI (urinary tract infection): (6) Family conflict: (7) Nonadherence to medication: (8) Lab test positive for detection of COVID-19 virus: Plan 12/31/24: Increase Risperidone to 2mg HS 12/30/24: Continue medications and treatment plan 12/29/24: Risperidone 1mg BID Trazodone 50mg HS Lorazepam 0.5mg HS Hold home sertraline, atomoxetine Continue 1:1 sitter Currently on 302 petition Will request records from outpatient psychiatry Will continue to follow patient as [facility] Risk Factors Assessment Do You Have Access To A Gun?: No Interval History Identifying Information 24 y/o F h/o Schizoaffective disorder, depressed type, multiple past psychiatric hospitalizations, COVID+ presents with acute psychosis in the context of family conflict at home and possible medication non-adherence. Police were called and patient threatened to stab herself. Psychiatry consulted for evaluation and recommendations. Chief Complaint Psychosis, drug dependence Subjective Subjective Patient was seen & assessed and interval progress reviewed with treatment team nursing and social work Overnight pt slept well. During interview she is evasive and appears disinterested. Initially reports voices are better and not instructing self harm. Later rates voices 9/10. Concern for pt ignoring conversation. Says she can go back to father upon discharge (not confirmed). Says her problem in the community is that her mother not seeing her. Denies SI. Does not want long acting injection. Unable to state reasons why. Attempted relapse prevention training for patient however uninterested in discussion. Collateral from bedside sitter indicates patient has been talking to people not in the room. Physical Exam Mental Examination Appearance: Disheveled Eye Contact: Sporadic Contact Motor Behavior: Unremarkable Speech: Soft and Poverty of Speech Mood: Irritable Affect: Constricted, Irritable and Suspicious Thought Process: Intact and Linear Thought Content: Preoccupation Hallucinations: Auditory Insight: Poor Judgement: Poor Vital Signs (Past 24 Hours) Last Vital Signs Temp 36.8 C 12/31/24 07:01 Pulse 68 12/31/24 07:01 Resp 18 12/31/24 07:01 BP 102/70 12/31/24 07:01 Pulse Ox 97 12/31/24 07:01 O2 Del Method Room Air 12/31/24 07:01 Results & Data ([facility]) Current Inpatient Medications Current Inpatient Medications: Current Inpatient Medications Lorazepam (Lorazepam 0.5 Mg Tab) 0.5 mg PO HS RAYMUNDO Stop: 01/28/25 20:59 Last Admin: 12/30/24 20:15 Dose: 0.5 mg Melatonin (Melatonin 3 Mg Tab) 6 mg PO HS PRN PRN Reason: Sleep Stop: 01/28/25 01:30 Last Admin: 12/30/24 18:25 Dose: 6 mg Nicotine Polacrilex (Nicotine Polacrilex 2 Mg Gum) 1 piece MT Q2H PRN PRN Reason: nicotine cravings Stop: 01/29/25 19:19 Last Admin: 12/31/24 13:42 Dose: 1 piece Ondansetron HCl (Ondansetron Inj 2 Mg/Ml 2 Ml Vial) 4 mg IV Q6H PRN PRN Reason: Nausea And Vomiting Stop: 01/28/25 08:42 Ondansetron HCl (Ondansetron 4 Mg Od Tab) 4 mg PO Q6H PRN PRN Reason: Nausea Stop: 01/28/25 09:12 Risperidone (Risperidone 1 Mg Tablet) 1 mg PO QAM RAYMUNDO Stop: 01/31/25 08:59 Risperidone (Risperidone 2 Mg Tablet) 2 mg PO HS RAYMUNDO Stop: 01/30/25 20:59 Trazodone HCl (Trazodone Hcl 50 Mg Tab) 50 mg PO HS RAYMUNDO Stop: 01/28/25 20:59 Last Admin: 12/30/24 20:27 Dose: 50 mg Trimethoprim/Sulfamethoxazole (Sulfamethoxazole/Trimethoprim Ds 800/160mg Tab) 1 tab PO Q12 RAYMUNDO Stop: 01/02/25 08:59 Last Admin: 12/31/24 09:48 Dose: 1 tab Mental Health & Subst Abuse Tx Psychiatrist Name of Psychiatrist: Washington Gudino Psychiatrist's Date Of Appointment With Psychiatric Provider: 01/10/25 Time of Appointment with Psychiatrist: 10:20 AM Psychiatric Appointment Comment: Kristy Aviles Psychiatrist Release of Information: Obtained Post Discharge Appointments Primary Care Physician Name Of Family Doctor/PCP: Maritza Kilgore [facility] Primary Care Provider Appointment Comment: Last seen in 2022 Primary Care Release of Information: Obtained and Reviewed (2) Schizoaffective disorder Schizoaffective disorder type: other Qualified Code(s): F25.8 - Other schizoaffective disorders
--- NOTE | 2024-12-31 19:04 | Hospitalist Progress Note ---
Date of Service December 31, 2024 Assessment & Plan (1) Auditory hallucinations: (2) Schizoaffective disorder: (3) Depression: (4) ADD (attention deficit disorder) without hyperactivity: (5) Lab test positive for detection of COVID-19 virus: (6) UTI (urinary tract infection): (7) Drug abuse: (8) Tobacco use: Plan Pt is a 24 yo female with a past med hx of schizoaffective disorder, ADD, polysubstance abuse, and depression who presented to the hospital on 12/29 for auditory and visual hallucinations. Had been off her mental health medications per psych case management for 3-4 days. Tested + for COVID-19 upon admission. #Hallucinations, auditory and visual * substance abuse (methamphetamines) likely the major culprit * cannot fully rule out her schizoaffective disorder playing a role * hallucinations had improved with resumption of risperdal and as meth effects have waned but still having auditory hallucinations * appreciate psych consult & ongoing recs * they advise increasing her HS risperdal to 2mg; leave AM dose at 1mg * cont 1:1 observation; sitter remains in room #Hx Schizoaffective disorder * reportedly off her medications the last few days prior to admission; typically takes risperidone and paliperidone * her mother reported noncompliance off/on for several years * during times of substance abuse she is often noncompliant with therapy * follows with [facility] locally for mental health * appreciate psych consultation * cont risperdal 1mg am, and increase HS dose to 2mg; ativan HS, trazodone HS * psychotic sx's improved but not resolved; sleep improved * cont 1:1 observation #Polysubstance abuse * Urine drug screen + for marijuana, methamphetamine, and MDMA * pt notably does have ADD and takes atomoxetine at home per med list; did this cause MDMA false +? #COVID-19 + * URI symptoms in the last few weeks * these symptoms are largely resolved; scant cough only * no indication for steroids or Remdesivir * cont airborne isolation per infection control guidelines #Uncomplicated UTI * 2nd klebsiella * intermediate resistance to macrobid * stopped macrobid; changed to bactrim DS 1 tab BID x 3 days; day #2 of such #Tobacco dependence * nicorette gum prn #RUQ discomfort * likely musculoskeletal - worse with twisting/turning/etc * she declines any imaging at this time * declines any PO or topical Rx for it care d/w psychiatry via [facility] correspondence updated pt's mother as well Admission and Anticipated Discharge Date Admission Date: December 29, 2024 Subjective upon arrival patient was sitting up in bed rocking herself back and forth a few seconds after I came in her nurse also entered the room she immediately asked for nicorette gum and melatonin I asked her how she was feeling and she said "I feel good; I'm ready to go; I think I can go home on Friday" eating well per staff she reports a mild discomfort in her RUQ twisting/turning makes it worse eating doesn't make this pain worse she declines x-rays of her lungs/abdomen despite offering this to her moving her bowels I did not specifically ask her about psychotic symptoms but by report she has been talking to herself and still is hearing voices Review of Systems Review of Systems: pulm - minimal cough; no dyspnea GI - no vomiting CV - no chest pain Physical Exam Physical Exam: gen - lying in bed comfortably, NAD, rocking back & forth mouth - MMM heart - RRR, s1 s2, no murmur lungs - CTA b/l abd - soft ND BS+; no HSM; minimally tender over the lower right ribs extending to the upper portion of the RUQ; pain is worse with twisting in bed ext - no edema, pulses 2+ b/l psych - awake, alert Results & Data Results & Data Vital Signs (Past 12 Hours) Vital Signs Temp Pulse Resp BP Pulse Ox O2 Del Method 12/31/24 15:38 36.9 C 64 17 98/62 L 98 Room Air PG Care Time/CCT Total # of Minutes Spent Total Time Spent with Patient: Total time spent is greater than 50% in coordination of care (as documented) at patient's floor/unit and/or counseling patient: Coding Level of Care Code 08409 SUB INP/OBS CARE 2/35MIN Diagnoses Auditory hallucinations R44.0 Schizoaffective disorder F25.8 Schizoaffective disorder type: other Depression F32.9 ADD (attention deficit disorder) without hyperactivity F98.8 Lab test positive for detection of COVID-19 virus U07.1 UTI (urinary tract infection) N39.0 Drug abuse F19.10 Tobacco use Z72.0 (2) Schizoaffective disorder Schizoaffective disorder type: other Qualified Code(s): F25.8 - Other schizoaffective disorders
[2024-12-31] MEDS: risperiDONE 2 MG TABLET PO SCH (20:16)
[2025-01-01] MEDS: risperiDONE 1 MG TABLET PO SCH (09:15)
--- NOTE | 2025-01-01 15:54 | Psychiatric Progress Note ---
Date of Service January 01, 2025 Impression / Recommendations Impression 24 y/o F h/o Schizoaffective disorder, depressed type, multiple past psychiatric hospitalizations, COVID+ presents with acute psychosis in the context of family conflict at home and possible medication non-adherence. Police were called and patient threatened to stab herself. Psychiatry consulted for evaluation and recommendations. A: 302 commitment expires tomorrow afternoon and she was not felt to meet 303 cri teria as of 12/31/2024 so 302 will have to . She is not observed actively responding to internal stimuli or with overt psychosis/delusions/paranoia or thought blocking today. But continues to present as guarded and with limited insight. Father has not been able to be reached despite multiple attempts but she reports he will be available to pick her up once her 302 commitment expires and that she can return home with him. She seems to be tolerating risperidone without any side effects and with some apparent benefit. No current safety concerns, she denies SI and is future-focused. She continues to decline most outpatient referral and additional supports but is agreeable to outpatient psychiatric follow-up. She agreed to engage in safety planning with psych liason. Overall, I spent a total of 50 minutes with this case including review of chart records, nursing report, review of lab work, direct evaluation of the patient at bedside, counseling the patient, discussion of the patient with the hospitalist provider, discussion with the psychiatric liaison during clinical rounds, and documentation in the electronic health record. (1) Schizoaffective disorder: (2) Auditory hallucinations: (3) Methamphetamine abuse: (4) Cannabis abuse: (5) UTI (urinary tract infection): (6) Family conflict: (7) Nonadherence to medication: (8) Lab test positive for detection of COVID-19 virus: Plan 01/01/2025: -Discontinue ativan 0.5mg HS due to substance use history, improved sleep -Ongoing 1:1 as she remains on 302 commitment -Plan for likely discharge tomorrow given 302 expires and no current criteria for 303 commitment -Psych liason to help her engage with safety planning 12/31/24: Increase Risperidone to 2mg HS 12/30/24: Continue medications and treatment plan 12/29/24: Risperidone 1mg BID Trazodone 50mg HS Lorazepam 0.5mg HS Hold home sertraline, atomoxetine Continue 1:1 sitter Currently on 302 petition Will request records from outpatient psychiatry Will continue to follow patient as [facility] Risk Factors Assessment Do You Have Access To A Gun?: No Interval History Identifying Information 24 y/o F h/o Schizoaffective disorder, depressed type, multiple past psychiatric hospitalizations, COVID+ presents with acute psychosis in the context of family conflict at home and possible medication non-adherence. Police were called and patient threatened to stab herself. Psychiatry consulted for evaluation and recommendations. Chief Complaint "Terrible". Subjective Subjective Patient was seen & assessed and interval progress reviewed. Apparently she was observed talking to herself and rocking at times. She denied hallucinations with the hospitalist provider and with me today. Reports sleeping and eating well. Denies SI. States she feels terrible due to COVID symptoms and has a brief cough. She states she's been talking with her father and that he can pick her up tomorrow. She continues to decline recommendation for referral for outpatient case management but remains agreeable to outpatient psychiatry follow-up. Continues to decline any substance use disorder services. She likes the risperidone, denies any side effects. Physical Exam Psychiatric Orientation: alert, oriented to person, oriented to place, oriented to time and + guarded Apperance: appropriately dressed and + disheveled Eye Contact: + fair eye contact Motor Behavior: no abnormal motor movements Speech: normal rate/rhythm/volume of speech Affect: + constricted affect Mood: + irritable mood; no depressed mood and no anxious mood Thought Process: goal directed thought process and + concrete thought process Thought Content: reality based without delusions Suicidal Thoughts: denies suicidal thoughts Homicidal Thoughts: denies homicidal thoughts Hallucinations: no auditory hallucinations and no visual hallucinations Insight: + limited insight Judgment: + limited judgement Vital Signs (Past 24 Hours) Last Vital Signs Temp 36.9 C 01/01/25 07:54 Pulse 82 01/01/25 07:54 Resp 20 01/01/25 07:54 BP 108/72 01/01/25 07:54 Pulse Ox 97 01/01/25 07:54 O2 Del Method Room Air 01/01/25 07:54 Results & Data ([facility]) Current Inpatient Medications Current Inpatient Medications: Current Inpatient Medications Melatonin (Melatonin 3 Mg Tab) 6 mg PO HS PRN PRN Reason: Sleep Stop: 01/28/25 01:30 Last Admin: 12/31/24 17:55 Dose: 6 mg Nicotine Polacrilex (Nicotine Polacrilex 2 Mg Gum) 1 piece MT Q2H PRN PRN Reason: nicotine cravings Stop: 01/29/25 19:19 Last Admin: 01/01/25 15:07 Dose: 1 piece Ondansetron HCl (Ondansetron Inj 2 Mg/Ml 2 Ml Vial) 4 mg IV Q6H PRN PRN Reason: Nausea And Vomiting Stop: 01/28/25 08:42 Ondansetron HCl (Ondansetron 4 Mg Od Tab) 4 mg PO Q6H PRN PRN Reason: Nausea Stop: 01/28/25 09:12 Risperidone (Risperidone 1 Mg Tablet) 1 mg PO QAM RAYMUNDO Stop: 01/31/25 08:59 Last Admin: 01/01/25 09:15 Dose: 1 mg Risperidone (Risperidone 2 Mg Tablet) 2 mg PO HS RAYMUNDO Stop: 01/30/25 20:59 Last Admin: 12/31/24 20:16 Dose: 2 mg Trazodone HCl (Trazodone Hcl 50 Mg Tab) 50 mg PO HS RAYMUNDO Stop: 01/28/25 20:59 Last Admin: 12/31/24 20:17 Dose: 50 mg Trimethoprim/Sulfamethoxazole (Sulfamethoxazole/Trimethoprim Ds 800/160mg Tab) 1 tab PO Q12 RAYMUNDO Stop: 01/02/25 08:59 Last Admin: 01/01/25 09:14 Dose: 1 tab Mental Health & Subst Abuse Tx Psychiatrist [facility] Date Of Appointment With Psychiatric Provider: 01/10/25 Time of Appointment with Psychiatrist: 10:20 AM Psychiatric Appointment Comment: Kristy Aviles Psychiatrist Release of Information: Obtained Post Discharge Appointments Primary Care Physician Name Of Family Doctor/PCP: [facility] Primary Care Provider Appointment Comment: Last seen in 2022 Primary Care Release of Information: Obtained and Reviewed (1) Schizoaffective disorder Schizoaffective disorder type: other Qualified Code(s): F25.8 - Other schizoaffective disorders
[2025-01-01 16:17] LABS: Amphetamine Urine, Confirm 3411 ng/mL (<250); MDA negative; MDEA negative; MDMA (Ecstasy) Urine, Confirm negative; Marijuana Quant, GCMS Urine 161 ng/mL (<5); Methamphetamine, Ur Confirm 6358 ng/mL (<250)
--- NOTE | 2025-01-01 17:42 | Hospitalist Progress Note ---
Date of Service January 01, 2025 Assessment & Plan (1) Auditory hallucinations: (2) Schizoaffective disorder: (3) Depression: (4) ADD (attention deficit disorder) without hyperactivity: (5) Lab test positive for detection of COVID-19 virus: (6) UTI (urinary tract infection): (7) Drug abuse: (8) Tobacco use: Plan Pt is a 24 yo female with a past med hx of schizoaffective disorder, ADD, polysubstance abuse, and depression who presented to the hospital on 12/29 for auditory and visual hallucinations. Had been off her mental health medications per psych case management for 3-4 days. Tested + for COVID-19 upon admission. #Hallucinations, auditory and visual * substance abuse (methamphetamines) likely the major culprit * cannot fully rule out her schizoaffective disorder playing a role * hallucinations had improved with resumption of risperdal and as meth effects have waned; she denies all hallucinations today * appreciate psych consult & ongoing recs * cont HS risperdal 2mg; leave AM dose at 1mg * cont 1:1 observation as she is on 302 until Friday, 01/02; sitter remains in room #Hx Schizoaffective disorder * reportedly off her medications the last few days prior to admission; typically takes risperidone and paliperidone * her mother reported noncompliance off/on for several years * during times of substance abuse she is often noncompliant with therapy * follows with [facility] locally for mental health * appreciate psych consultation * cont risperdal 1mg am, and HS dose 2mg; psychi stopping the ativan but can cont trazodone HS * psychotic sx's seem to have resolved; sleeping ok at night * cont 1:1 observation thru at least tomorrow * patient denying suicidality #Polysubstance abuse * Urine drug screen + for marijuana, methamphetamine, and MDMA * pt notably does have ADD and takes atomoxetine at home per med list; did this cause MDMA false +? #COVID-19 + * URI symptoms in the last few weeks * these symptoms are largely resolved; scant cough only * no indication for steroids or Remdesivir * cont airborne isolation per infection control guidelines #Uncomplicated UTI * 2nd klebsiella * intermediate resistance to macrobid * stopped macrobid; changed to bactrim DS 1 tab BID x 5 days; day #3 of such #Tobacco dependence * nicorette gum prn #RUQ discomfort * likely musculoskeletal - had been worse with twisting/turning/etc * she declined any imaging * declined any PO or topical Rx for it * pain resolved today * was it urinary tract related? care d/w psychiatry via [facility] correspondence will update pt's mother later today home tomorrow after 302 expires? per psych she likely will not require inpatient psych Admission and Anticipated Discharge Date Admission Date: December 29, 2024 Subjective patient sitting in bed as I entered the room she was rocking back & forth staff report she does talk to herself at times she is eating well states the previous RUQ discomfort has resolved ambulating w/o difficulty denies any auditory or visual hallucinations when asked about her overall mental well-being today she said "I feel good; thank you for putting me back on my risperdal" sleeping well at night asked for Sprite and crossword puzzles along with her clothes asks if she can go home tomorrow COVID -- scant cough, otherwise feels good Review of Systems Review of Systems: cv - no chest pain pulm - no dyspnea; minimal cough GI - no N/V/abd pain - no LUTS Physical Exam Physical Exam: gen - lying in bed comfortably, NAD, rocking back & forth - then stopped mouth - MMM heart - RRR, s1 s2, no murmur lungs - CTA b/l; no rales abd - soft ND BS+; no HSM; previous RUQ/costal margin discomfort resolved -- nontender today ext - no edema, pulses 2+ b/l psych - awake, alert, oriented; denies hallucinations; poor attention and poor insight; texting on her phone throughout the visit Results & Data Results & Data Vital Signs (Past 12 Hours) Vital Signs Temp Pulse Resp BP Pulse Ox O2 Del Method 01/01/25 07:54 36.9 C 82 20 108/72 97 Room Air PG Care Time/CCT Total # of Minutes Spent Total Time Spent with Patient: Total time spent is greater than 50% in coordination of care (as documented) at patient's floor/unit and/or counseling patient: Coding Level of Care Code 60364 SUB INP/OBS CARE 2/35MIN Diagnoses Auditory hallucinations R44.0 Schizoaffective disorder F25.8 Schizoaffective disorder type: other Depression F32.9 ADD (attention deficit disorder) without hyperactivity F98.8 Lab test positive for detection of COVID-19 virus U07.1 UTI (urinary tract infection) N39.0 Drug abuse F19.10 Tobacco use Z72.0 (2) Schizoaffective disorder Schizoaffective disorder type: other Qualified Code(s): F25.8 - Other schizoaffective disorders
[2025-01-01] MEDS: ONDANSETRON 4 MG OD TAB PO PRN (19:43)
[2025-01-02 07:58] VITALS: BP 109/75; PULSE 83; RESP 18; TEMP 98.1; O2SAT 97
--- NOTE | 2025-01-02 08:46 | Psychiatric Progress Note ---
Date of Service January 02, 2025 Impression / Recommendations Impression 24 y/o F h/o Schizoaffective disorder, depressed type, multiple past psychiatric hospitalizations, COVID+ presents with acute psychosis in the context of family conflict at home and possible medication non-adherence. Police were called and patient threatened to stab herself. Psychiatry consulted for evaluation and recommendations. A: Mood remains improved and she is eager for discharge. 302 commitment expires today and she doesn't meet 303 criteria as she continues to deny SI, deny HI, no symptoms of overt psychosis (no longer thought blocked or responding to internal stimuli) nor liza nor inability to meet her self- care/health/nutrition/safety needs. She does continue to have intermittent hallucinations, which at times can tell her to harm herself, however she reports these are chronic and lessened by the risperidone and that she feels safe and would never act on these voices. She is also able to engage in safety planning and reports she would seek voluntary psychiatric inpatient treatment if the voices worsened or if she felt she might act on the voices or if she developed SI or felt unsafe. She continues to find risperidone beneficial and plans to attend outpatient psychiatry follow-up with [facility] and seems motivated for this including asking about it again and confirming the appointment time today. She continues to decline residential substance use treatment or additional substance use treatment services as well as outpatient mental health case management. She did engage with safety planning and is future-oriented, looks forward to reading after discharge and going for walks. She participated in safety planning and in discussions about ways to seek support and recognizing warning signs and utilizing coping skills. Reviewed ways to have her safety plan and contacts easily available should thoughts of SI re- emerge in the future. Reviewed importance of seeking emergency care should SI intensify, worsen or should she feel unsafe in the future which she agrees to do. On the day of discharge she stated her mood was "I feel much better" and remained future-oriented including reading, going for walks, seeing her parents and engaging in aftercare appointments for psychiatry. Today she voices readiness for discharge. She notes improvement in mood and psychosis. She denies thoughts of harm to self or others. Thoughts are organized and they are clinically improved from admission. There is no evidence of acute psychosis though she continues to have chronic intermittent hallucinations but can better speak to these and has improved insight into them and can speak to importance of medication for managing her schizophrenia. She agrees to take medications as prescribed and keep follow-up appointments. At the time of the discharge she is deemed to be stable and appropriate for outpatient level of care. She is not deemed to be at imminent risk of harm to self or others. She is aware of emergency and crisis services. Knows to call 911 or go to nearest emergency care center if in a crisis which cannot be handled as an outpatient. Suicide risk assessment: Acute risk is low given improvement in mood and denial of SI, lack of access to lethal means, plan to avoid substance use, stable sleep, improvement in psychosis. Chronic risk is moderate to high given some non-modifiable risk factors: psychiatric co-morbid diagnoses, periods of impulsivity, prior psychiatric hospitalizations, mood disorder, schizophrenia, but also with protective factors including good social support, sense of responsibility to family and social supports, outpatient care in place, positive coping skills, positive problem solving. Counseled on ways to reduce acute and chronic risk including engaging with outpatient providers, using safety plan if needed, utilizing supports, taking medication, avoiding substance use and using coping skills. Modifiable risk factors of acute psychosis were addressed during hospitalization disposition planning, safety planning, and medication adjustments. Overall, I spent a total of 60 minutes with this case including review of chart records, nursing report, evaluation of the patient via telemedicine due to COVID+ status, counseling the patient, discussion of the patient with the hospitalist provider, discussion with the psychiatric liaison during clinical rounds, and documentation in the electronic health record. (1) Schizoaffective disorder: (2) Auditory hallucinations: (3) Methamphetamine abuse: (4) Cannabis abuse: (5) UTI (urinary tract infection): (6) Family conflict: (7) Nonadherence to medication: (8) Lab test positive for detection of COVID-19 virus: Plan 01/02/2025: -Stable for discharge from psychiatric standpoint -Safety planning completed, reviewed crisis resources and advised to go to the nearest emergency department should symptoms not improve, worsen or if she ever feels unsafe which she states understanding of and agreement with -Has outpatient psychiatry follow-up -Psych liason reviewed outpatient appointment and medications with her mother over the phone 01/01/2025: -Discontinue ativan 0.5mg HS due to substance use history, improved sleep -Ongoing 1:1 as she remains on 302 commitment -Plan for likely discharge tomorrow given 302 expires and no current criteria for 303 commitment -Psych liason to help her engage with safety planning 12/31/24: Increase Risperidone to 2mg HS 12/30/24: Continue medications and treatment plan 12/29/24: Risperidone 1mg BID Trazodone 50mg HS Lorazepam 0.5mg HS Hold home sertraline, atomoxetine Continue 1:1 sitter Currently on 302 petition Will request records from outpatient psychiatry Will continue to follow patient as [facility] Risk Factors Assessment Do You Have Access To A Gun?: No Hopelessness: No Interval History Identifying Information 24 y/o woman h/o Schizoaffective disorder, depressed type, multiple past psychiatric hospitalizations, COVID+ presents with acute psychosis in the context of family conflict at home and possible medication non-adherence. Police were called and patient threatened to stab herself. Psychiatry consulted for evaluation and recommendations. Chief Complaint "Yeah I feel much better". Telehealth Telehealth Options: Telephone only For the duration of the visit, provider was performing the assessment from: The same facility as the patient After establishing a telemedicine visit, patient was: Patient was verified with two unique identifiers, Patient/authorized rep acknowledged consent and understanding and Gave permission to continue telehealth session Total Time Spent (minutes): 20 Subjective Subjective Today Nancie reports her mood remains improved and good and she is eager to return home. She has called her mother to pick her up and looks forward to being able to read her books and go for walks once she leaves. States her intention of remaining "sober" and avoiding substance use. She does identify that her father often drinks alcohol and gets "drunk" and we discuss how this could be a challenging to be around. She feels this will not impact her ability to avoid substances but states she may see if her mother will allow her to stay with her. She reports ongoing voices but feels the risperidone is very helpful and reports she plans to continue this for her schizophrenia and to reduce the voices. At times the voices tell her to harm herself, which she states has been the case for many years, but she feels confident she would not act on this and denies SI. She denies that the hallucinations ever tell her how to harm herself nor do the voices instruct her that she must do this. States that if she ever felt she would act on the voices or felt unsafe or wanted to hurt herself that she would return to the hospital or go to the [facility]. She completed her safety plan with the psychiatric liason RN and spoke of her parents being strong deterrents to suicide. She denies any access to guns. She remains motivated for outpatient psychiatric follow-up and asked about and confirmed her upcoming appointment and verified that she'd had a new prescription for risperidone as she wants to continue this. Offered again option for voluntary inpatient psychiatric hospitalization which she declines as well as residential substance use treatment which she declines as well as declining outpatient case management or additional IOP services. Physical Exam Psychiatric Mood: no depressed mood and no anxious mood Thought Process: goal directed thought process Thought Content: reality based without delusions Suicidal Thoughts: denies suicidal thoughts Homicidal Thoughts: denies homicidal thoughts Hallucinations: + auditory hallucinations (chronic intermittent, but lessened); no visual hallucinations Insight: + limited insight (but improving, can now speak to her diagnosis and need for medication) Judgment: + limited judgement Vital Signs (Past 24 Hours) Last Vital Signs Temp 36.7 C 01/02/25 07:57 Pulse 83 01/02/25 07:57 Resp 18 01/02/25 07:57 BP 109/75 01/02/25 07:57 Pulse Ox 97 01/02/25 07:57 O2 Del Method Room Air 01/02/25 07:57 Results & Data ([facility]) Laboratory Results Laboratory Results - last 24 hr 12/28/24 19:22 U Amphetamines Confirm 3411 H U Methamphetamin Confrm 6358 H Urine MDEA negative MDMA negative Urine MDMA negative U Marijuana THC Carboxy 161 H Drug Screen Comment SEE NOTE Current Inpatient Medications Current Inpatient Medications: Current Inpatient Medications Melatonin (Melatonin 3 Mg Tab) 6 mg PO HS PRN PRN Reason: Sleep Stop: 01/28/25 01:30 Last Admin: 01/02/25 03:31 Dose: 6 mg Nicotine Polacrilex (Nicotine Polacrilex 2 Mg Gum) 1 piece MT Q2H PRN PRN Reason: nicotine cravings Stop: 01/29/25 19:19 Last Admin: 01/02/25 08:02 Dose: 1 piece Ondansetron HCl (Ondansetron Inj 2 Mg/Ml 2 Ml Vial) 4 mg IV Q6H PRN PRN Reason: Nausea And Vomiting Stop: 01/28/25 08:42 Ondansetron HCl (Ondansetron 4 Mg Od Tab) 4 mg PO Q6H PRN PRN Reason: Nausea Stop: 01/28/25 09:12 Last Admin: 01/01/25 19:43 Dose: 4 mg Risperidone (Risperidone 1 Mg Tablet) 1 mg PO QAM RAYMUNDO Stop: 01/31/25 08:59 Last Admin: 01/02/25 07:52 Dose: 1 mg Risperidone (Risperidone 2 Mg Tablet) 2 mg PO HS RAYMUNDO Stop: 01/30/25 20:59 Last Admin: 01/01/25 19:44 Dose: 2 mg Trazodone HCl (Trazodone Hcl 50 Mg Tab) 50 mg PO HS RAYMUNDO Stop: 01/28/25 20:59 Last Admin: 01/01/25 19:47 Dose: 50 mg Trimethoprim/Sulfamethoxazole (Sulfamethoxazole/Trimethoprim Ds 800/160mg Tab) 1 tab PO Q12 RAYMUNDO Stop: 01/02/25 08:59 Last Admin: 01/01/25 19:44 Dose: 1 tab Trimethoprim/Sulfamethoxazole (Sulfamethoxazole/Trimethoprim Ds 800/160mg Tab) 1 tab PO Q12 RAYMUNDO Stop: 01/04/25 08:59 Mental Health & Subst Abuse Tx Psychiatrist Name of Psychiatrist: [facility] Psychiatrist's Date Of Appointment With Psychiatric Provider: 01/10/25 Time of Appointment with Psychiatrist: 10:20 AM Psychiatric Appointment Comment: Kristy Aviles Psychiatrist Release of Information: Obtained Post Discharge Appointments Primary Care Physician Name Of Family Doctor/PCP: [facility] Primary Care Provider Appointment Comment: Last seen in 2022 Primary Care Release of Information: Obtained and Reviewed (1) Schizoaffective disorder Schizoaffective disorder type: other Qualified Code(s): F25.8 - Other schizoaffective disorders
--- NOTE | 2025-01-02 09:27 | Discharge Summary ---
Discharge Summary Date of Service date of admission - December 29, 2024 date of discharge - January 02, 2025 Principal Dx & Hospital Course #1 = Principal Diagnosis (1) Auditory hallucinations: (2) Schizoaffective disorder: (3) Depression: (4) Drug abuse: (5) COVID-19: (6) ADD (attention deficit disorder) without hyperactivity: (7) Lab test positive for detection of COVID-19 virus: (8) UTI (urinary tract infection): (9) Tobacco use: Plan 24yo female with history of schizoaffective disorder, ADD, polysubstance abuse, and depression who presented to the hospital on 12/29/24 due to auditory and visual hallucinations. By report had been off her mental health medications for at least 3-4 days prior to admission. Tested + for COVID-19 upon admission. #Hallucinations, auditory and visual * substance abuse (methamphetamines) likely the major culprit * cannot fully rule out her schizoaffective disorder playing a role * hallucinations improved with resumption of risperdal and as meth effects waned * psychiatry team was consulted who made recommendations for her psychiatric meds * at discharge she will take risperdal 2mg at HS and risperdal 1mg each morning * trazodone 50mg at bedtime was used for sleep * patient was on 1:1 observation for the entire stay as she was on a 302 petition until 01/02/25; on that day her 302 * psychiatry felt she did not require inpatient psychiatric treatment and she was not suicidal or homicidal; thus, once the 302 , it was felt she was safe for discharge home * at time of discharge she was released with her mother #Hx Schizoaffective disorder * reportedly off her medications the last few days prior to admission; typically takes risperidone or paliperidone * her mother reported noncompliance off/on for several years * during times of substance abuse she is often noncompliant with therapy * follows with [facility] locally for mental health services * see by psychiatry and they managed her psych medicines at noted above * she was asked to HOLD her sertraline at discharge * she was asked to NOT take any paliperidone #Polysubstance abuse * Urine drug screen + for marijuana, methamphetamine, and MDMA * pt notably does have ADD and takes atomoxetine at home per med list; did this cause MDMA false +? * during the stay she had no evidence of withdrawal from any substance #ADD * she was asked to HOLD her atomoxetine at discharge #COVID-19 + * had URI symptoms for some period of time prior to admission * she did not know the specific start date of her symptoms * symptoms were largely resolved by discharge; she had scant cough only * no indication for steroids or Remdesivir while here * at discharge was asked to isolate at home for 3 more days then can d/c isolation * during the stay she had no evidence of lower respiratory tract infection and had normal O2 sats #Uncomplicated UTI * 2nd klebsiella * bactrim DS 1 tab BID x 5 days #Tobacco dependence * nicorette gum prn was given while here #RUQ discomfort * patient had very mild discomfort in the RUQ * she declined any imaging while here * likely musculoskeletal - discomfort worse with twisting/turning/etc * pain was NOT worsened by eating/drinking * declined any PO medicine or topical Rx for it * pain resolved day of discharge Notes For Next Care Provider Medication Changes From Visit 1. risperdal - 1mg QAM + 2mg QHS 2. trazodone 50mg HS 3. bactrim DS x 3 additional doses 4. HOLD the following - * atomoxetine * sertraline * paliperidone Admission HPI Per Admitting Provider Pt is a 24 yo female with a past med hx of schizoaffective disorder, ADHD, and depression who presents to the hospital on 12/29 for auditory and visual hallucinations, has been off her medications per psych case management note for 3-4 days. Pt seen at bedside. She continuously responds to perceived visual and auditory stimuli. Even with repeated questioning, she continues to essentially only interact with other perceived stimuli. When asked if I could listen to her lungs, she states "why do you have to ask me all these questions right now?" and then answers no further questions. Per psych case management note, pt came from home where she lives with per parents. When asked if she has pain, she states yes but then is unable to describe or indicate to me where. Discharge Exam gen - lying in bed comfortably, NAD, awake/alert; not responding today to any internal stimulus mouth - MMM heart - RRR, s1 s2, no murmur lungs - CTA b/l; no rales abd - soft ND BS+ NT; no HSM; previous RUQ/costal margin discomfort resolved ext - no edema, pulses 2+ b/l psych - awake, alert, oriented; denies hallucinations; poor attention span; poor eye contact Discharge Plan Discharge Items Patient Disposition: Home - Self-Care Reason For Visit: HALLUCINATIONS Discharge Diagnosis: 1. hallucinations - improved 2. schizoaffective disorder 3. tobacco use + drug abuse 4. urinary tract infection 5. COVID-19 infection Activity: Resume your previous activity Non-emergency contact: Primary Care Provider and Psychiatrist Call non-emergency contact if: you have any medication questions and your symptoms worsen Follow-up/Referrals: [facility] [Outside] - 01/10/25 10:20 am (psychiatry follow- up) Maritza Kilgore [Primary Care Provider] - (1-2 weeks) Diet: Regular Addtl Attending Provider Instructions: Ms Singh, You were hospitalized due to having hallucinations. You also tested positive for COVID-19 and had evidence of urinary tract infection as well. The hallucinations improved with getting back on your risperidone. [facility] Psychiatry was heavily involved in the management of your hallucinations. We were also concerned that drug use may have contributed to your hallucinations. Fortunately the COVID infection is mild. Lab studies, oxygen levels, etc were all normal while you were hospitalized. You didn't have signs of pneumonia from COVID. Urinary infection was treated with antibiotics. Recommendations - 1. Since we don't know the exact date of the start of your COVID illness I would assume that you may be still contagious to others. I would recommend that you plan to stay at home today, Friday, and Friday to avoid passing COVID to other people. If on Friday of this week you are feeling well and your cough is minimal you can leave your house and resume normal activities. If for some reason you have to go out into the community between & Friday please wear a mask. Plan to spend the next few days at home resting as needed, and focusing on good hydration and good nutrition. If you need cough medicine you can take [id number]-[id number] Mucinex up to 1200mg twice daily as needed. 2. Medicine to treat your hallucinations - * risperidone 1mg every morning * risperidone 2mg every evening 3. Medicine for sleep - * trazodone 50mg at bedtime * mvzj-nmf-bunxpft melatonin 3-5mg 1-2 hours before bedtime 4. Antibiotics for urinary infection - * you have 3 doses left of your trimethoprim-sulfa * take dose #1 TONIGHT * take dose #2 TOMORROW morning * take dose #3 TOMORROW evening -- this is your final dose 5. HOLD/STOP the following medicines - * atomoxetine ("Strattera") * sertraline * paliperidone 6. If the minor discomfort near the bottom of the right ribs continues please see your family doctor for this. In the meantime you can take yany-vaw-dfedfzi Tylenol 1000mg every 8 hours as needed (maximum 3000mg in 24 hours) OR ibuprofen qzkp-pto-lqixjim 600mg (the tablets are 200mg each thus you can take 3 at a time) every 8 hours as needed. Follow-up - see separate section Return to [facility] ER if - * you develop fevers over 100 degrees * you have worsening shortness of breath * you have worsening hallucinations (auditory, visual, etc) * you have thoughts of hurting yourself or someone else * any other concerns Please continue to feel better! -Dr Collazo Pending Studies at Discharge: No Stand-Alone Forms: My [facility], Smoking Cessation Medications and DC Order Prescriptions: New sulfamethoxazole-trimethoprim [Bactrim DS] 800-160 mg Tablet 1 tab PO Q12 Qty: 3 0RF Continued Kyleena 17.5 mcg/24 hrs (5 yrs) 19.5 mg intrauterine device 1 device intrauterine CONTINOUS trazodone 50 mg tablet 50 mg PO HS Qty: 14 0RF Changed risperidone 1 mg tablet 1 mg PO DIRECTED Qty: 45 0RF Rx Instructions: take 1mg PO each morning and 2mg PO at bedtime. Held atomoxetine 10 mg capsule 10 mg PO DAILY Hold Instructions: hold until you see [facility] atomoxetine 40 mg capsule 40 mg PO QAM Hold Instructions: hold until you see [facility] sertraline 25 mg tablet 25 mg PO DAILY Hold Instructions: hold until you see [facility] Discontinued trazodone 100 mg tablet 100 mg PO HS paliperidone 3 mg tablet extended release 24 hr 3 mg PO QAM Discharge Orders: Discharge Order (Routine); Ordered 01/02/25 Ordered By: Kayden Goel/Other Patient Handouts: E Cigarettes and Vaping Admission Data Admit Date/Time: 12/29/24 01:33 Attending Provider: Kayden Collazo Admit Provider: Aggie Henriquez Primary Care Provider: Mar[facility] Kilgore Other Providers: Jose Tang; Idania Miguel Other Interventions: Discharge Summary Assessment (RN) Last Done: 01/02/25 10:05 Hospital Stay Data Consultations Psychiatry Diagnostic Imagining Performed Head CT 12/28/24 21:46 Exam(s): CT HEAD Without Contrast EXAM: CT Head Without Intravenous Contrast CLINICAL HISTORY: Reason for exam: ams. TECHNIQUE: Axial computed tomography images of the head/brain without intravenous contrast. CTDI is 39.03 mGy and DLP is 547.75 mGy-cm. Automated exposure control was utilized for the study. A dose lowering technique was utilized adhering to the principles of ALARA. COMPARISON: 09/11/2022 FINDINGS: Brain: No hemorrhage, extra-axial fluid collection, mass effect, or edema. Ventricles: Unremarkable. Bones/joints: Unremarkable. No fracture. Soft tissues: Unremarkable. Sinuses: No acute sinusitis. Mastoid air cells: Unremarkable as visualized. IMPRESSION: 1. No acute intracranial abnormality. Electronically signed by: Jc Concepcion MD 12/28/24 23:38 PM Pending Results Patient Have Any Pending Studies at Discharge: No Discharge Instructions Given to Patient (Per Discharging Provider) Ms Singh, You were hospitalized due to having hallucinations. You also tested positive for COVID-19 and had evidence of urinary tract infection as well. The hallucinations improved with getting back on your risperidone. [facility] Psychiatry was heavily involved in the management of your hallucinations. We were also concerned that drug use may have contributed to your hallucinations. Fortunately the COVID infection is mild. Lab studies, oxygen levels, etc were all normal while you were hospitalized. You didn't have signs of pneumonia from COVID. Urinary infection was treated with antibiotics. Recommendations - 1. Since we don't know the exact date of the start of your COVID illness I would assume that you may be still contagious to others. I would recommend that you plan to stay at home today, Friday, and Friday to avoid passing COVID to other people. If on Friday of this week you are feeling well and your cough is minimal you can leave your house and resume normal activities. If for some reason you have to go out into the community between & Friday please wear a mask. Plan to spend the next few days at home resting as needed, and focusing on good hydration and good nutrition. If you need cough medicine you can take mqny-nue-wavfefq Mucinex up to 1200mg twice daily as needed. 2. Medicine to treat your hallucinations - * risperidone 1mg every morning * risperidone 2mg every evening 3. Medicine for sleep - * trazodone 50mg at bedtime * sqkn-yoz-edoyaht melatonin 3-5mg 1-2 hours before bedtime 4. Antibiotics for urinary infection - * you have 3 doses left of your trimethoprim-sulfa * take dose #1 TONIGHT * take dose #2 TOMORROW morning * take dose #3 TOMORROW evening -- this is your final dose 5. HOLD/STOP the following medicines - * atomoxetine ("Strattera") * sertraline * paliperidone 6. If the minor discomfort near the bottom of the right ribs continues please see your family doctor for this. In the meantime you can take dfyy-jjd-hpazchg Tylenol 1000mg every 8 hours as needed (maximum 3000mg in 24 hours) OR ibuprofen lkuu-mwj-yghdojj 600mg (the tablets are 200mg each thus you can take 3 at a time) every 8 hours as needed. Follow-up - see separate section Return to [facility] if - * you develop fevers over 100 degrees * you have worsening shortness of breath * you have worsening hallucinations (auditory, visual, etc) * you have thoughts of hurting yourself or someone else * any other concerns Please continue to feel better! -Dr Collazo Total Time Total Time Spent Total Time Spent (In Minutes): 45 Coding Level of Care Code 20435 INP/OBS DISCH >30 MIN Diagnoses Auditory hallucinations R44.0 Schizoaffective disorder F25.8 Schizoaffective disorder type: other Depression F32.9 Drug abuse F19.10 COVID-19 U07.1 ADD (attention deficit disorder) without hyperactivity F98.8 Lab test positive for detection of COVID-19 virus U07.1 UTI (urinary tract infection) N39.0 Tobacco use Z72.0
[2025-01-02] MEDS: SULFAMETHOXAZOLE/TRIMETHOPRIM DS 800/160MG TAB PO SCH (10:01)
== END 2025-01-02 10:39 | disposition home or self-care (01) | DRG 896 ==
LOC: ED 18:39 → EDINP 12-29 01:33 → SUATTDRO 12-29 01:33 → 3E 12-29 02:16